=== PATIENT | female | born 1965 | race American Indian/Alaskan Native ===

== ENCOUNTER 2019-11-02 09:05 | Outpatient (CLI) | payer OTHER | END 2019-11-02 09:06 | disposition home or self-care (01) | LOC: PF 09:05 | PROVIDERS: ATTEND Internal Medicine | DX: R06.02 Shortness of breath (principal); I10 Essential (primary) hypertension; M17.12 Unilateral primary osteoarthritis, left knee | CPT/HCPCS: 94010 ==